=== PATIENT | female | born 1925 | race Caucasian/White ===

== ENCOUNTER 2017-05-25 18:55 | Emergency (ER) | payer OTHER ==
[2017-05-25 19:13] VITALS: BP 177/88; PULSE 81; TEMP 98; BMI 21.6
--- NOTE | 2017-05-25 19:13 | PDOC ---
History of Present Illness - General History Source: Patient Exam Limitations: No Limitations - History of Present Illness Initial Comments: 05/25/17 19:29 The patient is a 89 year old female with a significant past medical history of HTN, HLD, who presents to the ED s/p fall. Patient was walking up the gravel steps outside when she tripped and fell on her right negron. She comes in with a laceration to the right negron and right big toe. Patient denies head trauma, back pain, neck pain. Patient denies fever, chills, nausea, vomiting, diarrhea. Patient takes 1 baby aspirin 81 mg daily. Patient is otherwise healthy. PAST MEDICAL HISTORY: HTN, HLD PAST SURGICAL HISTORY: no significant history FAMILY HISTORY: no pertinent history SOCIAL HISTORY: Pt lives with family and is employed. MEDICATIONS: reviewed ALLERGIES: As per nursing notes ROS General: No fevers or chills, no weakness, no weight loss HEENT: No change in vision. No sore throat,. No ear pain CardioVascular: No chest pain or shortness of breath Respiratory:No cough, or wheezing. Gastrointestinal: no nausea, vomiting, diarrhea or constipation, No rectal bleeding Genitourinary: No dysuria, hematuria, or frequency Musculoskeletal: No joint or muscle pain or swelling Neurologic: No headache, vertigo, dizziness or loss of consciousness Psychiatric: nor depression Skin: + laceration to right negron and right big toe. Endocrine: no increased thirst or abnormal weight change Allergic: no skin or latex allergy All other systems reviewed and normal Exam: General: Well-nourished well-developed individual, no acute distress HEENT: Throat: Normal, tonsils normal, no erythema or exudate Neck: Supple, no meningeal signs, no lymphadenopathy Eyes:Pupils equal reactive and round, extraocular motion intact Chest: Nontender to palpation Cardiac: S1-S2 normal, regular rate and rhythm, no murmurs rubs or gallops Respiratory: Lungs clear to auscultation bilateral Abdomen: Soft, nondistended, normal bowel sounds, nontender to palpation diffusely Extremities: Warm, dry, no cyanosis, clubbing, or edema Skin: Right lower extremity: there is a contusion anterior negron with associated skin tear. Approximately 3 cm in diameter with a small area of proximately cm in diameter where the skin has avulved. No visible foreign body. No bony tenderness. No active bleeding. Right great toe: there is a small skin avulsion of the distal lateral toe. No active bleeding. No bony tenderness. No foreign body. Neurovascular is intact of the leg foot and toes. Neuro: Alert and oriented x3, nonfocal exam, grossly intact, normal gait Psych: Normal mood and affect <Garcia Hedrick - Last Filed: 05/25/17 19:29> - General History Source: Patient Exam Limitations: No Limitations - History of Present Illness Initial Comments: 05/25/17 19:44 A portion of this note was documented by scribe services under my direction. I have reviewed the details of the note, within reason, and agree with the documentation. The case summary and management plan written by me. Assessment and plan: This is an 89-year-old female who comes in status post falling while going up some steps. Patient fell forward and skinned her right great toe and anterior negron area. Patient caught herself with her hands and did not fall fall all the way forward. Patient's family cleaned the injured area on her right lower extremity prior to coming in and by the time she arrived here there was no active bleeding. I a evaluated the area and make sure there was no visible foreign bodies and then apply bacitracin and dressed both wounds. Discussed with family procedure for changing the dressings and patient's tetanus was up-to-date she was discharged home with the family. <Lesli De La O I - Last Filed: 05/25/17 19:46> - General Chief Complaint: Injury Stated Complaint: FELL WHILE CLIMBING STEP INJURED R GREAT TOE Past History <Garcia Hedrick - Last Filed: 05/25/17 19:29> - Past Medical History HTN: Yes Hypercholesterolemia: Yes - Psycho/Social/Smoking Cessation Hx Anxiety: No Suicidal Ideation: No Smoking Status: No Smoking History: Never smoked Number of Cigarettes Smoked Daily: 0 Information on smoking cessation initiated: No Hx Alcohol Use: No Drug/Substance Use Hx: No Substance Use Type: None <Lesli De La O I - Last Filed: 05/25/17 19:46> - Past Medical History Allergies/Adverse Reactions: Allergies Allergy/AdvReac Type Severity Reaction Status Date / Time No Known Allergies Allergy Verified 05/25/17 18:57 Home Medications: Ambulatory Orders Aspirin Coated [Ecotrin] 81 mg PO DAILY 08/05/12 Atenolol [Tenormin] 25 mg PO DAILY 08/05/12 Atorvastatin Ca [Lipitor (Restricted To Cardiology)] 40 mg PO HS 08/05/12 Ramipril [Altace] 5 mg PO DAILY 08/05/12 *Physical Exam - Vital Signs Last Vital Signs Temp Pulse Resp BP Pulse Ox 98 F 81 16 177/88 97 05/25/17 18:57 05/25/17 18:57 05/25/17 18:57 05/25/17 18:57 05/25/17 18:57 <Garcia Hedrick - Last Filed: 05/25/17 19:29> - Vital Signs Last Vital Signs Temp Pulse Resp BP Pulse Ox 98 F 81 16 177/88 97 05/25/17 18:57 05/25/17 18:57 05/25/17 18:57 05/25/17 18:57 05/25/17 18:57 <Lesli De La O I - Last Filed: 05/25/17 19:46> *DC/Admit/Observation/Transfer - Attestations Scribe Attestion: 05/25/17 19:30 Documentation prepared by Garcia Hedrick, acting as medical office representative for Lesli De La O MD. <Garcia Hedrick - Last Filed: 05/25/17 19:29> - Discharge Dispostion Admit: No <Lesli De La O I - Last Filed: 05/25/17 19:46> Diagnosis at time of Disposition: Skin tear of right lower leg without complication Qualifiers: Encounter type: initial encounter Qualified Code(s): S81.811A - Laceration without foreign body, right lower leg, initial encounter Abrasion of great toe of right foot Qualifiers: Encounter type: initial encounter Qualified Code(s): S90.411A - Abrasion, right great toe, initial encounter - Discharge Dispostion Disposition: HOME Condition at time of disposition: Stable - Patient Instructions Printed Discharge Instructions: DI for Abrasion Additional Instructions: Change the dressing on the toe and the leg once a day. Reapply bacitracin to the toe and cover with a Band-Aid until the area has scabbed over. Do this once a day. Reapply bacitracin to the skin tear on the leg then applied the petroleum gauze , then some dry gauze and wrapped with the roll of gauze as demonstrated by the doctor. Do this once a day until the area that is open has closed over. Return to the emergency department immediately with ANY new, persistent or worsening symptoms. Continue any medications as previously prescribed by your physician. You should follow up with your primary doctor as soon as possible regarding today's emergency department visit. . Please make sure your doctor reviews the results of your emergency evaluation. Thank you for coming to the Emergency Department today for your care. It was a pleasure to see you today. Please note that your evaluation is INCOMPLETE until you follow-up with your doctor.
== END 2017-05-25 19:33 | disposition home or self-care (01) ==
LOC: FER 18:55
DX: S81.811A Laceration without foreign body, right lower leg, initial encounter (principal); S90.411A Abrasion, right great toe, initial encounter; W10.9XXA Fall (on) (from) unspecified stairs and steps, initial encounter; Y93.89 Activity, other specified; Y92.9 Unspecified place or not applicable; I10 Essential (primary) hypertension; E78.5 Hyperlipidemia, unspecified; Z79.82 Long term (current) use of aspirin
CPT/HCPCS: 99281-25